=== PATIENT | male | born 1985 | race Caucasian/White ===

== ENCOUNTER 2021-01-14 16:52 | Observation (INO) ==
[2021-01-14 17:40] LABS: ABS Eosinophils 0.2 10^3/ul (0-0.6); ABS Lymphocytes 2.1 10^3/ul (1.0-4.8); ABS Monocytes 0.7 10^3/ul (0-0.8); ABS Neutrophils 2.3 10^3/ul (1.5-7.7); Eosinophil % 3.3 %; Hematocrit 43 % (42-52); Hemoglobin 14.8 g/dL (14.0-18.0); Lymphocyte % 40.1 %; Mean Corpuscular HGB Conc 34 g/dL (31-36); Mean Corpuscular Hemoglobin 32 pg (27-31); Mean Corpuscular Volume 94 fL (80-94); Mean Platelet Volume 10.1 fL (7.4-10.4); Nucleated Red Blood Cells % 0.1; Platelet Count 212 10^3/uL (150-450); Red Blood Count 4.59 10^6 /uL (4.18-5.48); Red Cell Distribution Width 13 % (10-15); White Blood Count 5.2 10^3/uL (3.5-10.8)
[2021-01-14 17:54] LABS: INR 1.1 (0.86-1.15)
[2021-01-14 17:56] LABS: ALT 17 U/L (7-52); AST 25 U/L (13-39); Albumin 4.8 g/dL (3.2-5.2); Albumin/Globulin Ratio 1.2 (1-3); Alkaline Phosphatase 66 U/L (35-149); Anion Gap 5 mmol/L (2-11); Blood Urea Nitrogen 11 mg/dL (6-24); CO2 Carbon Dioxide 28 mmol/L (22-32); Calcium 9.6 mg/dL (8.6-10.3); Chloride 104 mmol/L (101-111); EGFR African American 102.9 (>60); EGFR Non-African American 85.1 (>60); Glucose 104 mg/dL (70-100); Potassium 3.6 mmol/L (3.5-5.0); Sodium 137 mmol/L (135-145); Total Protein 8.8 g/dL (6.4-8.9)
[2021-01-14 18:12] LABS: Troponin I 0.31 ng/mL (<0.03)
[2021-01-14] MEDS ORDERED: Iohexol 350 (CONTRAST) 500 ML MDV IV ONE (19:02)
[2021-01-14] MEDS ORDERED: Lorazepam PYXIS KEY PRN (19:54)
[2021-01-14] MEDS ORDERED: LORazepam 2 mg VIAL 1 ml IV ONE (19:54)
[2021-01-14 20:13] LABS: Troponin I 0.45 ng/mL (<0.03)
[2021-01-14] MEDS ORDERED: Potassium Chlor 20 meq TAB.ER PO ONE (21:50)
[2021-01-14] MEDS ORDERED: Ondansetron 4 mg VIAL 2 MG/ML 2 ml VIAL IV PRN (21:51)
[2021-01-14 22:20] LABS: Magnesium 1.9 mg/dL (1.9-2.7)
[2021-01-14] MEDS ORDERED: Magnesium Sulfate 2 gm BAG 2 GM/50 ML BAG IVPB ONE (22:48)
[2021-01-15 00:51] LABS: Troponin I 0.39 ng/mL (<0.03)
[2021-01-15 07:02] LABS: ABS Lymphocytes 1.2 10^3/ul (1.0-4.8); ABS Monocytes 0.6 10^3/ul (0-0.8); ABS Neutrophils 6.3 10^3/ul (1.5-7.7); Eosinophil % 0.1 %; Hematocrit 43 % (42-52); Hemoglobin 14.9 g/dL (14.0-18.0); Lymphocyte % 14.9 %; Mean Corpuscular HGB Conc 35 g/dL (31-36); Mean Corpuscular Hemoglobin 33 pg (27-31); Mean Corpuscular Volume 94 fL (80-94); Mean Platelet Volume 10.5 fL (7.4-10.4); Platelet Count 224 10^3/uL (150-450); Red Blood Count 4.56 10^6 /uL (4.18-5.48); Red Cell Distribution Width 13 % (10-15); White Blood Count 8.1 10^3/uL (3.5-10.8)
[2021-01-15 07:14] LABS: C Reactive Protein 18.64 mg/L (<8.01); Calcium 9.1 mg/dL (8.6-10.3); EGFR African American 119.1 (>60); EGFR Non-African American 98.4 (>60); Potassium 4.5 mmol/L (3.5-5.0)
[2021-01-15] MEDS ORDERED: DOXYCYCLINE MONOHYDRATE 40 MG PO SCH (09:00)
[2021-01-15] MEDS ORDERED: Potassium Chlor 20 meq TAB.ER PO SCH (09:00)
[2021-01-15] MEDS ORDERED: MAGNESIUM MALATE PO SCH (09:00)
[2021-01-15] MEDS ORDERED: [UNRECOGNIZED DRUG - OTHER] TOPICAL SCH (09:00)
[2021-01-15] MEDS ORDERED: Cholecalciferol (VIT D3) 1,000 unit TAB PO SCH (09:00)
[2021-01-15 12:28] VITALS: BP 156/77
== END 2021-01-15 16:49 | disposition home or self-care (01) ==
LOC: MEDTELE 16:52 → ED 16:52 → SUATTDRO 23:00
PROVIDERS: ADMIT Student in an Organized Health Care Education/Training Program; ATTEND Internal Medicine